=== PATIENT | female | born 1940 | race Hispanic/Latino ===

== ENCOUNTER 2019-08-19 14:05 | Emergency (ER) | payer MEDICARE ==
[2019-08-19 14:39] LABS: #Basophils 0.1 thou/uL (0.0-0.2); #Eosinphils 0.1 thou/uL (0.0-0.7); #Lymphocytes 1.7 thou/uL (1.20-3.40); #Monocytes 0.4 thou/uL (0.11-0.59); #Neutrophils 3.7 thou/uL (1.40-6.50); %Basophils 1.7 % (0.0-1.0); %Eosinophils 1.3 % (0.0-10.0); %Monocytes 6.8 % (0.0-10.0); %Neutrophils 61.3 % (42.0-75.0); Hemoglobin 13.4 g/dL (12.0-16.0); Mean Corpuscular HGB CONC 32.2 g/dL (32.0-36.0); Mean Corpuscular Hemoglobin 29.1 pg (27.0-31.0); Mean Corpuscular Volume 90.3 fL (78.0-98.0); Mean Platelet Volume 6.9 fL (7.4-10.4); Platelet Count 210 thou/uL (130-400); RBC Distribution Width 13.1 % (11.5-14.5); Red Blood Cell (RBC) Count 4.61 mill/uL (4.20-5.40)
[2019-08-19 15:00] LABS: ALT (SGPT) 21 U/L (8-55); AST (SGOT) 13 U/L (5-34); Albumin 4.4 g/dL (3.4-4.8); Alkaline Phosphatase 61 U/L (40-110); Anion Gap 12 mmol/L (10-20); BUN (Urea Nitrogen) 13 mg/dL (9.8-20.1); Bilirubin, Total 0.4 mg/dL (0.2-1.2); Calc. Creatinine Clearance 0 mL/min (70-130); Calcium 9.9 mg/dL (7.8-10.44); Carbon Dioxide 25 mmol/L (23-31); Chloride 108 mmol/L (98-107); Estimated GFR-MDRD 68; Globulin 2.7 g/dL (2.4-3.5); Glucose 88 mg/dL (83-110); Potassium 3.4 mmol/L (3.5-5.1); Protein, Total 7.1 g/dL (6.0-8.3); Sodium 142 mmol/L (136-145)
[2019-08-19] MEDS ORDERED: Potassium Chloride 20 MEQ TAB ONE (15:34)
[2019-08-19] MEDS ORDERED: Potassium Chloride 20 MEQ/100 ML PREMIX BAG ONE (15:36)
--- NOTE | 2019-08-19 19:47 | RAD ---
PORTABLE CHEST 08/19/19 An AP portable film at 1438 shows a normal sized heart and clear lungs. No infiltrate or effusion was seen. There is a questionable nodular density overlying one of the right lower ribs that measures about 6 m m in width. If real, it is slightly spiculated. I cannot tell if this is actually a tiny nodule or co nfluence of markings. At the very least, I would recommend a follow-up PA chest film to take a second look at it. She may ultimately need a CT to be sure there is no pathology here. IMPRESSION: 1. No acute infiltrates. 2. Equivocal 6 mm spiculated density in the right lung base. Follow-up required (either follow-u p PA chest in the next few weeks or consideration of a CT). Code T POS: HOME
== END 2019-08-19 15:53 | disposition short-term general hospital (02) ==
LOC: BURERS 14:05
DX: R07.9 Chest pain, unspecified (principal)
CPT/HCPCS: 71045; 80053; 83880; 84484; 85025; 85379; 93005; 96374; J3480